=== PATIENT | female | born 1945 | race Caucasian/White ===

== ENCOUNTER 2021-02-06 16:07 | Outpatient (CLI) | payer MEDICARE, MEDICAID | END 2021-02-06 16:08 | disposition home or self-care (01) | LOC: CSHMRI 16:07 | PROVIDERS: ATTEND Orthopaedic Surgery | DX: M50.90 Cervical disc disorder, unspecified, unspecified cervical region (principal); M47.812 Spondylosis without myelopathy or radiculopathy, cervical region | CPT/HCPCS: 72141 ==

== ENCOUNTER 2021-04-12 13:47 | Outpatient (CLI) | payer MEDICARE, MEDICAID | END 2021-04-12 13:48 | disposition home or self-care (01) | LOC: CSHMRI 13:47 | PROVIDERS: ATTEND Orthopaedic Surgery | DX: M54.5 Low back pain (principal); M47.816 Spondylosis without myelopathy or radiculopathy, lumbar region | CPT/HCPCS: 72148 ==

== ENCOUNTER 2022-02-20 14:25 | Outpatient (CLI) | payer MEDICARE, MEDICAID | END 2022-02-20 14:26 | disposition home or self-care (01) | LOC: CSHMAMMO 14:25 | PROVIDERS: ATTEND Nurse Practitioner Family | DX: Z13.820 Encounter for screening for osteoporosis (principal); M85.89 Other specified disorders of bone density and structure, multiple sites; Z78.0 Asymptomatic menopausal state | CPT/HCPCS: 77080 ==

== ENCOUNTER 2022-04-26 12:46 | Outpatient (CLI) | payer OTHER | END 2022-04-26 12:47 | disposition home or self-care (01) | LOC: CSHMRI 12:46 | PROVIDERS: ATTEND Orthopaedic Surgery | DX: Z98.1 Arthrodesis status (principal); M47.812 Spondylosis without myelopathy or radiculopathy, cervical region; Z98.890 Other specified postprocedural states; M48.02 Spinal stenosis, cervical region | CPT/HCPCS: 72040; 72141 ==

== ENCOUNTER 2025-08-18 14:09 | Emergency (ER) | payer MEDICARE, MEDICAID ==
[2025-08-18 14:30] LABS: #Basophils 0.04 10x3/uL (0.0-0.2); #Eosinophils 0.14 10x3/uL (0.0-0.5); #Monocytes 0.55 10x3/uL (0.0-1.1); #Neutrophils 3.41 10x3/uL (1.5-8.4); %Basophils 0.5 % (0.0-2.0); %Eosinophils 1.9 % (0.0-6.0); %Lymphocytes 44.8 % (18.0-47.0); %Monocytes 7.3 % (0.0-10.0); %Neutrophils 45.1 % (40.0-75.0); Hematocrit 35.0 % (34.9-44.5); Hemoglobin 10.8 g/dL (12.0-15.5); Mean Corpuscular Hemoglobin 24.8 pg (27.0-33.0); Mean Corpuscular Volume 80.5 fL (81.6-98.3); Platelet Count 199 10x3/uL (150-450); Red Blood Cell (RBC) Count 4.35 10x6/uL (3.90-5.03); White Blood Cell (WBC) Count 7.56 10x3/uL (3.5-10.5)
[2025-08-18 14:47] LABS: ALT (SGPT) 19 U/L (Less than 34); AST (SGOT) 22 U/L (11-34); Albumin 4.5 g/dL (3.1-4.5); Alkaline Phosphatase 64 U/L (40-110); Anion Gap 16 mmol/L (10-20); BUN (Urea Nitrogen) 21 mg/dL (9.8-20.1); Bilirubin, Total 0.5 mg/dL (0.3-1.2); Calc. Creatinine Clearance 0 mL/min (70-130); Calcium 9.2 mg/dL (7.8-10.44); Carbon Dioxide 21 mmol/L (23-31); Chloride 106 mmol/L (98-107); Globulin 2.4 g/dL (2.4-3.5); Glucose 217 mg/dL (83-110); Potassium 4.4 mmol/L (3.5-5.1); Sodium 139 mmol/L (136-145)
[2025-08-18 14:53] LABS: Troponin I Less than 0.010 ng/mL (< 0.028)
[2025-08-18 15:06] LABS: Glucose, Urine (Dipstick) 250 mg/dL (Negative); Leukocyte 25 (Negative); Protein, Urine (Dipstick) 100 mg/dl (Neg-Trace); Specific Gravity, Urine 1.020 (1.005-1.030)
[2025-08-18 15:18] LABS: CAUTI Indications for Culture Alt mental st,lethar; Mucous/LPF 2+ LPF (<2+); RBC/HPF 0-3 HPF (0-3); WBC/HPF 0-3 HPF (0-3)
[2025-08-18 15:20] LABS: Bacteria/HPF 1+ HPF (None Seen); Urine Culture Reflex No No
[2025-08-18] MEDS ORDERED: Acetaminophen 500 MG TAB ONE (17:49)
== END 2025-08-18 18:30 | disposition home or self-care (01) ==
LOC: CSHERS 14:09
DX: N39.0 Urinary tract infection, site not specified (principal); R53.1 Weakness; E11.9 Type 2 diabetes mellitus without complications; I10 Essential (primary) hypertension
CPT/HCPCS: 36415; 51701; 70450; 71045; 80053; 81001; 83605; 83880; 84484; 85025; 93005

== ENCOUNTER 2025-10-05 09:32 | Outpatient (CLI) | payer MEDICARE, MEDICAID | END 2025-10-05 09:33 | disposition home or self-care (01) | LOC: CSHRAD 09:32 | PROVIDERS: ATTEND Orthopaedic Surgery | DX: M54.2 Cervicalgia (principal); M54.6 Pain in thoracic spine; M54.50 Low back pain, unspecified; Z96.698 Presence of other orthopedic joint implants; Z98.1 Arthrodesis status; M47.812 Spondylosis without myelopathy or radiculopathy, cervical region; M47.814 Spondylosis without myelopathy or radiculopathy, thoracic region; M47.817 Spondylosis without myelopathy or radiculopathy, lumbosacral region | CPT/HCPCS: 72040; 72070; 72100 ==